=== PATIENT | female | born 1950 | race Caucasian/White ===

== ENCOUNTER → 2017-02-04 | Outpatient (CLI) | payer MEDICARE ==
[~2017-02-04] MED LIST: AMOXICILLIN 50500 MG PO; Avalide; CEPHALEXIN500 M1 PO; GLUCOPHAGE500 MG/TAB PO; GLUCOPHAGE850 MG/TAB PO; KLOR-CON M1010 MEQ PO; LEVOXYL0.1 MG PO; MICARDIS HCT 121 TA1 PO; MICARDIS20 MG PO; MULTIPLE VITAMI1 CAP PO; NORCO 325 MG-51 TAB PO; NORCO 325 MG-7.1 TAB PO; PREMARIN .3MG0.3 MG PO; PREMARIN0.625 MG PO; SYNTHROID0.075 MG/T PO; ULTRAM 50MG TAB50 MG PO; ZYRTEC-D 5 MG-11 TER PO; ZYRTEC5 MG PO
== END ==
LOC: MC.RAD 08:29
DX: Z12.31 Encounter for screening mammogram for malignant neoplasm of breast (principal); N64.89 Other specified disorders of breast

== ENCOUNTER → 2017-02-09 | Outpatient (CLI) | payer MEDICARE | LOC: MC.RAD 12:45 | DX: N64.89 Other specified disorders of breast (principal) ==

== ENCOUNTER → 2018-03-17 | Outpatient (CLI) | payer MEDICARE, MEDICAID | LOC: MC.RAD 12:54 | DX: Z12.31 Encounter for screening mammogram for malignant neoplasm of breast (principal); N64.89 Other specified disorders of breast ==

== ENCOUNTER → 2018-03-22 | Outpatient (CLI) | payer MEDICARE, MEDICAID | LOC: MC.RAD 12:49 | DX: R92.8 Other abnormal and inconclusive findings on diagnostic imaging of breast (principal) ==

== ENCOUNTER → 2019-03-05 | Outpatient (CLI) | payer MEDICARE, MEDICAID | LOC: ZCOL.LAB 22:08 | DX: N39.0 Urinary tract infection, site not specified (principal) ==

== ENCOUNTER → 2022-09-07 | Outpatient (CLI) | payer MEDICARE, MEDICAID | LOC: COL.RAD 08:07 | DX: I16.0 Hypertensive urgency (principal); R80.9 Proteinuria, unspecified ==

== ENCOUNTER → 2023-04-29 | Outpatient (CLI) | payer MEDICARE, OTHER | LOC: COL.VAS 09:24 | DX: E11.69 Type 2 diabetes mellitus with other specified complication (principal); I10 Essential (primary) hypertension ==

== ENCOUNTER → 2023-08-16 | Outpatient (CLI) | payer MEDICARE, OTHER | LOC: DIA.ED 10:33 | DX: E11.319 Type 2 diabetes mellitus with unspecified diabetic retinopathy without macular edema (principal); E78.5 Hyperlipidemia, unspecified; I10 Essential (primary) hypertension; Z79.84 Long term (current) use of oral hypoglycemic drugs | CPT/HCPCS: G0108 ==

== ENCOUNTER → 2023-09-21 | Outpatient (CLI) | payer MEDICARE, OTHER ==
[~2023-09-21] MED LIST changes: +CIPRO 500MG TA500 MG PO; +COZAAR100 MG PO; +FARXIGA10 PO; +GLUCOPHAGE1000 MG PO; +GLUCOTROL10 MG PO; +MEVACOR 20M20 MG/TAB PO; +SYNTHROID0.112 MG/T PO
== END ==
LOC: DIA.ED 10:56
DX: E11.319 Type 2 diabetes mellitus with unspecified diabetic retinopathy without macular edema (principal); Z79.84 Long term (current) use of oral hypoglycemic drugs; E78.5 Hyperlipidemia, unspecified; I10 Essential (primary) hypertension